=== PATIENT | male | born 1980 | race Two or more races ===

== ENCOUNTER 2023-05-11 07:57 | Emergency (ER) | payer OTHER ==
[~2023-05-11] VITALS: Ht 177.8 cm; Wt 77.1 kg
[2023-05-11] MEDS ORDERED: DEXILANT30 MG (08:08)
[2023-05-11] MEDS ORDERED: LIALDA1.2 GM (08:08)
== END 2023-05-11 10:44 | disposition home or self-care (01) ==
LOC: ER 07:58
DX: H10.31 Unspecified acute conjunctivitis, right eye (principal); Z88.0 Allergy status to penicillin